=== PATIENT | male | born 1945 | race Caucasian/White ===

== ENCOUNTER → 2017-04-15 | Outpatient (CLI) | payer MEDICARE, MEDICAID | LOC: CARD 10:19 | PROVIDERS: ATTEND Internal Medicine Cardiovascular Disease | DX: I25.10 Atherosclerotic heart disease of native coronary artery without angina pectoris (principal); I25.5 Ischemic cardiomyopathy; E78.4 Other hyperlipidemia; I10 Essential (primary) hypertension; R09.89 Other specified symptoms and signs involving the circulatory and respiratory systems; J43.8 Other emphysema; Z72.0 Tobacco use | CPT/HCPCS: 93306 ==

== ENCOUNTER → 2018-08-13 | Outpatient (CLI) | payer MEDICARE, MEDICAID ==
[~2018-08-13] MED LIST: ASPI-999 PO; CEPH-507 PO; FINA5TAB6 PO; HYDR-3870 PO; LISI-556 PO; METF-399 PO; SIMV20TA3 PO; TAMS0.4C2 PO
== END | disposition home or self-care (01) ==
LOC: PREOP 05:30
PROVIDERS: ATTEND Urology
DX: Z01.818 Encounter for other preprocedural examination (principal)

== ENCOUNTER 2018-08-17 06:12 | Day surgery (SDC) | payer MEDICARE, MEDICAID ==
[~2018-08-17] VITALS: Ht 188 cm; Wt 86.0 kg
[2018-08-17 06:20] VITALS: BP 117/70
[2018-08-17] MEDS ORDERED: LIDOCAINE PF 2% 5 ML (XYLOCAINE) VIAL ONE ×2 (06:30→06:57)
[2018-08-17] MEDS: LACTATED RINGERS 1,000 ML IV PRN ×2 (06:49→09:14)
[2018-08-17] MEDS ORDERED: proPOfol 200 MG/20 ML (DIPRIVAN) VIAL IV ONE (06:57)
[2018-08-17] MEDS ORDERED: MIDAZOLAM 2 MG/2 ML (VERSED) VIAL ONE (06:57)
[2018-08-17] MEDS ORDERED: ONDANSETRON 4 MG/2 ML (SDV) Z0FRAN ONE (06:57)
[2018-08-17] MEDS ORDERED: fentaNYL INJECTION 100 MCG/2 ML AMP ONE (06:57)
[2018-08-17] MEDS ORDERED: LACTATED RINGERS 1,000 ML IV ONE (06:57)
[2018-08-17] MEDS ORDERED: GENTAMICIN 40 MG/ML 2 ML INJ SDV ONE (06:59)
[2018-08-17] MEDS ORDERED: LIDOCAINE 1% INJ 20 ML 20 ML VIAL ONE (06:59)
[2018-08-17] MEDS ORDERED: SEVOFLURANE (ULTANE) 15 ML INHAL SOLN ONE ×3 (07:03→07:43)
--- NOTE | 2018-08-17 07:09 | Progress Note-Pre Operative ---
Pre-Operative Progress Note H&P Reviewed The H&P was reviewed, patient examined and no changes noted. Date Seen by Provider: Aug 17, 2018 Time Seen by Provider: 07:08 Date H&P Reviewed: Aug 17, 2018 Time H&P Reviewed: 07:08 Pre-Operative Diagnosis: NEUROGENIC BLADDER WITH URINE RETENTION JOSE HUERTA MD Aug 17, 2018 7:08 am
[2018-08-17] MEDS ORDERED: TAMS0.4C2 PO (07:14)
[2018-08-17] MEDS ORDERED: LISI-556 PO (07:14)
[2018-08-17] MEDS ORDERED: FINA5TAB6 PO (07:14)
[2018-08-17] MEDS ORDERED: SIMV20TA3 PO (07:14)
[2018-08-17] MEDS ORDERED: ASPI-999 PO (07:14)
[2018-08-17] MEDS ORDERED: METF-399 PO (07:14)
--- OUTSIDE RECORDS SUMMARY | 2018-08-17 07:19 | XMS REPORT | Continuity of Care Document ---
Author Author [facility] Organization [facility] Address Unknown Phone Unavailable Allergies Active Description Code Type Severity Reaction Onset Reported/Identified Relationship to Patient Clinical Status Yes NO KNOWN DRUG ALLERGIES NO KNOWN DRUG ALLERG UNKNOWN Yes NO KNOWN DRUG ALLERGIES UNKNOWN NO KNOWN DRUG ALLERG Yes No Known Allergies [id number] Drug Allergy Unknown N/A 12/29/2013 Medications Medication Packaging Start Date Stop Date Route Dosage Sig URO-JET (LIDOCAINE) INJ 2 % (UROJECT) APPLICATION 05/19/2018 05/19/2018 ONCE&0940 URO-JET (LIDOCAINE) INJ 2 % (UROJECT) APPLICATION 07/22/2018 07/22/2018 ONCE&2220 Problems Date Dx Coded Attending Type Code Diagnosis Diagnosed By 02/26/2015 JEAN CARLOS SÁNCHEZ FACC, BERTHA FACP CCDS Ot 272.4 02/26/2015 JEAN CARLOS SÁNCHEZ FACC, BERTHA FACP CCDS Ot 397.0 02/26/2015 JEAN CARLOS SÁNCHEZ FACC, BERTHA FACP CCDS Ot 401.9 02/26/2015 JEAN CARLOS SÁNCHEZ FACC, BERTHA FACP CCDS Ot 424.0 02/26/2015 JEAN CARLOS SÁNCHEZ FACC, BERTHA FACP CCDS Ot 427.69 02/26/2015 JEAN CARLOS SÁNCHEZ FACC, BERTHA FACP CCDS Ot 427.89 02/26/2015 JEAN CARLOS SÁNCHEZ FACC, BERTHA FACP CCDS Ot 786.09 02/26/2015 JEAN CARLOS SÁNCHEZ FACC, BERTHA FACP CCDS Ot 250.00 02/26/2015 JEAN CARLOS SÁNCHEZ FACC, BERTHA FACP CCDS Ot 272.4 02/26/2015 JEAN CARLOS SÁNCHEZ FACC, ALI FACP CCDS Ot 305.1 02/26/2015 JEAN CARLOS SÁNCHEZ FACC, BERTHA FACP CCDS Ot 401.9 02/26/2015 JEAN CARLOS SÁNCHEZ FACC, BERTHA FACP CCDS Ot 427.69 02/26/2015 JEAN CARLOS SÁNCHEZ FACC, BERTHA FACP CCDS Ot 427.89 02/26/2015 BERTHA EVANGELISTA MD, FACC FACP CCDS Ot 786.09 02/26/2015 JEAN CARLOS SÁNCHEZ FACC, ALI FACP CCDS Ot 427.69 02/26/2015 JEAN CARLOS SÁNCHEZ FACC, ALI FACP CCDS Ot 427.89 02/26/2015 JEAN CARLOS SÁNCHEZ FACC, ALI FACP CCDS Ot 786.09 03/19/2015 BAIMA, KATIE L GOLF CART ATTENDANT Ot 272.4 03/19/2015 BAIMA, KATIE L GOLF CART ATTENDANT Ot 305.1 03/19/2015 BAIMA, KATIE L GOLF CART ATTENDANT Ot 401.9 03/19/2015 BAIMA, KATIE L GOLF CART ATTENDANT Ot 414.00 03/19/2015 BAIMA, KATIE L GOLF CART ATTENDANT Ot 414.8 03/19/2015 BAIMA, KATIE L GOLF CART ATTENDANT Ot 427.69 03/19/2015 BAIMA, KATIE L GOLF CART ATTENDANT Ot 496 04/03/2015 BAIMA, KATIE L GOLF CART ATTENDANT Ot 272.4 04/03/2015 BAIMA, KATIE L GOLF CART ATTENDANT Ot 305.1 04/03/2015 BAIMA, KATIE L GOLF CART ATTENDANT Ot 401.9 04/03/2015 BAIMA, KATIE L GOLF CART ATTENDANT Ot 414.00 04/03/2015 BAIMA, KATIE L GOLF CART ATTENDANT Ot 414.8 04/03/2015 BAIMA, KATIE L GOLF CART ATTENDANT Ot 427.69 04/03/2015 BAIMA, KATIE L GOLF CART ATTENDANT Ot 496 05/15/2017 JEAN CARLOS SÁNCHEZ FACC, BERTHA DILLARDP CCDS Ot E78.4 OTHER HYPERLIPIDEMIA 05/15/2017 JEAN CARLOS SÁNCHEZ FACC, BERTHA FACP CCDS Ot I10 ESSENTIAL (PRIMARY) HYPERTENSION 05/15/2017 JEAN CARLOS SÁNCHEZ FACC, BERTHA FACP CCDS Ot I25.10 ATHSCL HEART DISEASE OF [place] CORONARY 05/15/2017 JEAN CARLOS SÁNCHEZ FACC, BERTHA FACP CCDS Ot I25.5 ISCHEMIC CARDIOMYOPATHY 05/15/2017 JEAN CARLOS SÁNCHEZ FACC, BERTHA FACP CCDS Ot J43.8 OTHER EMPHYSEMA 05/15/2017 JEAN CARLOS SÁNCHEZ FACC, BERTHA FACP CCDS Ot R09.89 OTH SYMPTOMS AND SIGNS INVOLVING THE CIR 05/15/2017 BERTHA EVANGELISTA MD, FACC FACP CCDS Ot Z72.0 TOBACCO USE 05/18/2017 JEAN CARLOS SÁNCHEZ FACC, BERTHA FACP CCDS Ot E78.4 OTHER HYPERLIPIDEMIA 05/18/2017 JEAN CARLOS SÁNCHEZ FACC, ALI FACP CCDS Ot I10 ESSENTIAL (PRIMARY) HYPERTENSION 05/18/2017 JEAN CARLOS SÁNCHEZ FACC, ALI FACP CCDS Ot I25.10 ATHSCL HEART DISEASE OF [place] CORONARY 05/18/2017 JEAN CARLOS SÁNCHEZ FACC, ALI FACP CCDS Ot I25.5 ISCHEMIC CARDIOMYOPATHY 05/18/2017 JEAN CARLOS SÁNCHEZ FACC, ALI FACP CCDS Ot J43.8 OTHER EMPHYSEMA 05/18/2017 JEAN CARLOS SÁNCHEZ FACC, ALI FACP CCDS Ot R09.89 OTH SYMPTOMS AND SIGNS INVOLVING THE CIR 05/18/2017 JEAN CARLOS SÁNCHEZ FACC, ALI FACP CCDS Ot Z72.0 TOBACCO USE 09/28/2017 Paul Suero 401.9 UNSPECIFIED ESSENTIAL HYPERTENSION 09/28/2017 Paul Suero I10 ESSENTIAL (PRIMARY) HYPERTENSION 09/28/2017 Paul Suero 272.4 OTHER AND UNSPECIFIED HYPERLIPIDEMIA 09/28/2017 Paul Suero 401.9 UNSPECIFIED ESSENTIAL HYPERTENSION 09/28/2017 Paul Suero E78.5 HYPERLIPIDEMIA, UNSPECIFIED 09/28/2017 Paul Suero I10 ESSENTIAL (PRIMARY) HYPERTENSION 09/28/2017 Paul Suero 272.4 OTHER AND UNSPECIFIED HYPERLIPIDEMIA 09/28/2017 Paul Suero 401.9 UNSPECIFIED ESSENTIAL HYPERTENSION 09/28/2017 Paul Suero E78.5 HYPERLIPIDEMIA, UNSPECIFIED 09/28/2017 Paul Suero I10 ESSENTIAL (PRIMARY) HYPERTENSION 12/28/2017 Paul Suero 250.00 DIABETES MELLITUS WITHOUT MENTION OF COMPLICATION, TYPE II OR UNSPECIFIED TYPE, NOT STATED UNCONTROLLED 12/28/2017 Paul Suero E11.9 TYPE 2 DIABETES MELLITUS WITHOUT COMPLICATIONS 12/28/2017 Paul Suero 250.00 DIABETES MELLITUS WITHOUT MENTION OF COMPLICATION, TYPE II OR UNSPECIFIED TYPE, NOT STATED UNCONTROLLED 12/28/2017 Paul Suero E11.9 TYPE 2 DIABETES MELLITUS WITHOUT COMPLICATIONS 05/19/2018 Paul Suero 788.20 RETENTION OF URINE, UNSPECIFIED 05/19/2018 Paul Suero 790.93 ELEVATED PROSTATE SPECIFIC ANTIGEN [PSA] 05/19/2018 Paul Suero R33.9 RETENTION OF URINE, UNSPECIFIED 05/19/2018 Paul Suero R97.20 ELEVATED PROSTATE SPECIFIC ANTIGEN [PSA] 05/19/2018 Paul Suero V76.44 SCREENING FOR MALIGNANT NEOPLASMS OF PROSTATE 05/19/2018 Paul Sureo Z12.5 ENCOUNTER FOR SCREENING FOR MALIGNANT NEOPLASM OF PROSTATE 05/21/2018 Drake More W 996.31 MECHANICAL COMPLICATION DUE TO URETHRAL [INDWELLING] CATHETER 05/21/2018 Drake More W T83.03 LEAKAGE OF URINARY (INDWELLING) CATHETER 05/21/2018 Drake More A 996.31 MECHANICAL COMPLICATION DUE TO URETHRAL [INDWELLING] CATHETER 05/21/2018 Drake More A T83.031A LEAKAGE OF INDWELLING URETHRAL CATHETER, INITIAL ENCOUNTER 05/29/2018 Kelvin Chowdary 599.0 URINARY TRACT INFECTION, SITE NOT SPECIFIED 05/29/2018 Kelvin Chowdary 788.20 RETENTION OF URINE, UNSPECIFIED 05/29/2018 Kelvin Chowdary N39.0 URINARY TRACT INFECTION, SITE NOT SPECIFIED 05/29/2018 Kelvin Chowdary R33.9 RETENTION OF URINE, UNSPECIFIED 07/22/2018 ROBERT PATEL 788.20 RETENTION OF URINE, UNSPECIFIED 07/22/2018 ROBERT PATEL R33.9 RETENTION OF URINE, UNSPECIFIED 08/11/2018 JEAN CARLOS SÁNCHEZ FACC, ALI FACP CCDS Ot 272.4 HYPERLIPIDEMIA NEC/NOS 08/11/2018 JEAN CARLOS SÁNCHEZ FACC, ALI FACP CCDS Ot 397.0 TRICUSPID VALVE DISEASE 08/11/2018 JEAN CARLOS SÁNCHEZ FACC, ALI FACP CCDS Ot 401.9 HYPERTENSION NOS 08/11/2018 JEAN CARLOS SÁNCHEZ FACC, ALI FACP CCDS Ot 424.0 MITRAL VALVE DISORDER 08/11/2018 JEAN CARLOS SÁNCHEZ FACC, ALI FACP CCDS Ot 427.69 PREMATURE BEATS NEC 08/11/2018 JEAN CARLOS SÁNCHEZ FACC, ALI FACP CCDS Ot 427.89 CARDIAC DYSRHYTHMIAS NEC 08/11/2018 JEAN CARLOS SÁNCHEZ FACC, ALI FACP CCDS Ot 786.09 RESPIRATORY ABNORM NEC 08/11/2018 JEAN CARLOS SÁNCHEZ FACC, ALI FACP CCDS Ot 250.00 DIAB DIOGO WO COMPL, TYPE II OR UNSPEC TY 08/11/2018 JEAN CARLOS SÁNCHEZ FACC, ALI FACP CCDS Ot 272.4 HYPERLIPIDEMIA NEC/NOS 08/11/2018 JEAN CARLOS SÁNCHEZ FACC, ALI FACP CCDS Ot 305.1 TOBACCO USE DISORDER 08/11/2018 JEAN CARLOS SÁNCHEZ FACC, ALI FACP CCDS Ot 401.9 HYPERTENSION NOS 08/11/2018 JEAN CARLOS SÁNCHEZ FACC, ALI FACP CCDS Ot 427.69 PREMATURE BEATS NEC 08/11/2018 JEAN CARLOS SÁNCHEZ FACC, ALI FACP CCDS Ot 427.89 CARDIAC DYSRHYTHMIAS NEC 08/11/2018 JEAN CARLOS SÁNCHEZ FACC, ALI FACP CCDS Ot 786.09 RESPIRATORY ABNORM NEC 08/11/2018 JEAN CARLOS SÁNCHEZ FACC, ALI FACP CCDS Ot 427.69 PREMATURE BEATS NEC 08/11/2018 JEAN CARLOS SÁNCHEZ FACC, ALI FACP CCDS Ot 427.89 CARDIAC DYSRHYTHMIAS NEC 08/11/2018 JEAN CARLOS SÁNCHEZ FACC, ALI FACP CCDS Ot 786.09 RESPIRATORY ABNORM NEC 08/11/2018 BAIMA, KATIE L GOLF CART ATTENDANT Ot 272.4 HYPERLIPIDEMIA NEC/NOS 08/11/2018 BAIMA KATIE L GOLF CART ATTENDANT Ot 305.1 TOBACCO USE DISORDER 08/11/2018 BAIMA, KATIE L GOLF CART ATTENDANT Ot 401.9 HYPERTENSION NOS 08/11/2018 BAIMA, KATIE L GOLF CART ATTENDANT Ot 414.00 CORON ATHEROSCLER NOS TYPE VESSEL, NATIV 08/11/2018 ADRIANAMA KATIE L GOLF CART ATTENDANT Ot 414.8 CHR ISCHEMIC HRT DIS NEC 08/11/2018 ADRIANAMA, KATIE L GOLF CART ATTENDANT Ot 427.69 PREMATURE BEATS NEC 08/11/2018 ADRIANAMA KATIE L GOLF CART ATTENDANT Ot 496 CHR AIRWAY OBSTRUCT NEC 08/11/2018 JEAN CARLOS SÁNCHEZ FACC, ALI FACP CCDS Ot E78.4 OTHER HYPERLIPIDEMIA 08/11/2018 JEAN CARLOS SÁNCHEZ FACC, ALI FACP CCDS Ot I10 ESSENTIAL (PRIMARY) HYPERTENSION 08/11/2018 JEAN CARLOS SÁNCHEZ FACC, ALI FACP CCDS Ot I25.10 ATHSCL HEART DISEASE OF [place] CORONARY 08/11/2018 JEAN CARLOS SÁNCHEZ FACC, ALI FACP CCDS Ot I25.5 ISCHEMIC CARDIOMYOPATHY 08/11/2018 JEAN CARLOS SÁNCHEZ FACC, ALI FACP CCDS Ot J43.8 OTHER EMPHYSEMA 08/11/2018 JEAN CARLOS SÁNCHEZ FACC, ALI FACP CCDS Ot R09.89 OTH SYMPTOMS AND SIGNS INVOLVING THE CIR 08/11/2018 JEAN CARLOS SÁNCHEZ FACC, ALI FACP CCDS Ot Z72.0 TOBACCO USE Procedures There is no data. Results Test Result Range Hemoglobin A1C - 12/08/16 08:38 % A1C 5.60 % 5.40-6.60 AvGlu 124 mg/dL 70-110 Lipid Panel - 03/10/17 09:00 C/HDL 2.9 3.7-6.7 Cholesterol 144 mg/dL 100-240 HDL 50 mg/dL 30-85 LDL-Calculated 74 mg/dL 0-100 Trig 99 mg/dL 35-160 VLDL 20 mg/dL 0-42 Hemoglobin A1C - 06/10/17 08:53 % A1C 5.90 % 5.40-6.60 AvGlu 134 mg/dL 70-110 [facility] - 09/28/17 09:52 Anion Gap 18 6-14 BUN 10 mg/dL 5-25 Calcium 9.6 mg/dL 8.3-10.4 Chloride 102 mmol/L 95-114 CO2 21 mEq/L 22-33 Creat 0.88 mg/dL 0.50-1.50 eGFR 84 mL/min/1.73m2 >59 Glucose 119 mg/dL 70-110 Osmo 281 280-295 Potassium 5.4 Hemolyzed 1+ mmol/L 3.5-5.3 Sodium 136 mmol/L 134-148 Hemoglobin A1C - 12/28/17 09:27 % A1C 5.50 % 5.40-6.60 AvGlu 117 mg/dL 70-110 BMP - 03/29/18 09:05 Anion Gap 18 6-14 BUN 14 mg/dL 5-25 Calcium 9.1 mg/dL 8.3-10.4 Chloride 109 mmol/L 95-114 CO2 21 mEq/L 22-33 Creat 1.12 mg/dL 0.50-1.50 eGFR 64 mL/min/1.73m2 >59 Glucose 103 mg/dL 70-110 Osmo 298 280-295 Potassium 3.6 mmol/L 3.5-5.3 Sodium 144 mmol/L 134-148 Urine Culture - 05/19/18 10:57 PRELIM CULTURE RESULTS No Growth 24 hours FINAL CULTURE RESULTS No Growth 48 hours MEDIA PLATED Setup at 11:05 on 05/19/2018 CULTURE SOURCE void [facility] - 05/20/18 07:27 Anion Gap 16 6-14 BUN 24 mg/dL 5-25 Calcium 9.2 mg/dL 8.3-10.4 Chloride 106 mmol/L 95-114 CO2 23 mEq/L 22-33 Creat 1.61 mg/dL 0.50-1.50 eGFR 42 mL/min/1.73m2 >59 Glucose 163 mg/dL 70-110 Osmo 300 280-295 Potassium 3.4 mmol/L 3.5-5.3 Sodium 142 mmol/L 134-148 Urinalysis - 05/21/18 03:18 Icotest Negative Negative Urine Volume Urine Volume Sufficient (10mL) Urine Yeast No Yeast present Urine-Appearance Slightly Cloudy Clear Urine-Bacteria Trace Urine-Bilirubin 1+ Negative Urine-Blood 3+ Negative Urine-Color Red Colorless-Lt. Yellow Urine-Epithelial Cells 0-5/HPF Urine-Glucose Negative Negative Urine-Ketones Negative Negative Urine-Leukocytes Negative Negative Urine-Nitrite Positive Negative Urine-Other Culture to follow Urine-pH 7.0 5-8.5 Urine-Protein 3+ Negative Urine-RBC TNTC Urine-Specific [place] 1.020 1.000-1.030 Urine-WBC 0-2/HPF Urobilinogen 0.2 0.2-1.0 Urine Culture - 05/21/18 03:34 PRELIM CULTURE RESULTS [id number],000 Col/ml Mixed Gram Positive organisms.[id number] Normal gali and/or skin contaminant. FINAL CULTURE RESULTS [id number] further work up done. MEDIA PLATED Setup at 03:44 on 05/21/2018 CULTURE SOURCE void Urine Culture - 05/29/18 12:16 PRELIM CULTURE RESULTS No Growth 24 hours FINAL CULTURE RESULTS <10,000 Gram Positive Mixed Gali [id number] Skin Contaminant [id number] Further Workup done CULTURE SOURCE urine culture Urinalysis - 05/29/18 12:16 Icotest N/A Negative Urine Volume Urine Volume Sufficient (10mL) Urine Yeast No Yeast present Urine-Appearance Clear Clear Urine-Bacteria 2+ Urine-Bilirubin Negative Negative Urine-Blood 1+ Negative Urine-Color Yellow Colorless-Lt. Yellow Urine-Glucose Negative Negative Urine-Ketones Negative Negative Urine-Leukocytes 1+ Negative Urine-Mucus 1+ Urine-Nitrite Negative Negative Urine-Other Culture to follow Urine-pH 7.5 5-8.5 Urine-Protein 3+ Negative Urine-RBC 5-10/HPF Urine-Specific [place] 1.020 1.000-1.030 Urine-WBC 20-40/HPF Urobilinogen 0.2 E.U./dL 0.2-1.0 Comprehensive Metabolic Panel - 06/28/18 09:33 Albumin 4.4 g/dL 3.6-5.1 ALP 59 U/L 35-130 ALT 13 U/L 6-45 Anion Gap 15 6-14 AST 15 U/L 2-40 BUN 22 mg/dL 5-25 Calcium 9.7 mg/dL 8.3-10.4 Chloride 104 mmol/L 95-114 CO2 23 mEq/L 22-33 Creat 1.18 mg/dL 0.50-1.50 eGFR 60 mL/min/1.73m2 >59 Globulin 3.7 g/dL 2.3-3.5 Glucose 114 mg/dL 70-110 Osmo 287 280-295 Potassium 4.6 mmol/L 3.5-5.3 Sodium 137 mmol/L 134-148 TBil 0.4 mg/dL 0.2-1.2 TP 8.1 g/dL 6.0-8.3 Urinalysis - 07/22/18 22:32 Icotest N/A Negative Urine Volume Urine Volume Sufficient (10mL) Urine-Appearance Clear Clear Urine-Bacteria Negative Urine-Bilirubin Negative Negative Urine-Blood Negative Negative Urine-Color Lt. Yellow Colorless-Lt. Yellow Urine-Epithelial Cells 0-5/HPF Urine-Glucose Negative Negative Urine-Ketones Negative Negative Urine-Leukocytes Negative Negative Urine-Nitrite Negative Negative Urine-Other Culture to follow; cath specimen Urine-pH 5.5 5-8.5 Urine-Protein Negative Negative Urine-RBC 0-3/HPF Urine-Specific [place] 1.010 1.000-1.030 Urine-WBC 8-15/HPF Urobilinogen 0.2 0.2-1.0 Urine Culture - 07/22/18 22:32 PRELIM CULTURE RESULTS No Growth 24 hours FINAL CULTURE RESULTS No Growth 48 hours MEDIA PLATED Setup at 22:45 on 07/22/2018 CULTURE SOURCE cath urine specimen Encounters ACCT No. Visit Date/Time Discharge Status Pt. Type Provider Facility Loc./Unit Complaint [id number] 04/15/2017 10:19:00 04/15/2017 23:59:59 CLS Outpatient JEAN CARLOS SÁNCHEZ FACC, ALI FACP CCDS [facility] CARD I25.10,I25.5, J43.8 [id number] 02/26/2015 13:24:00 02/26/2015 23:59:59 CLS Outpatient KATIE OLIVEIRA [facility] CARD FREQUENT PVC,CAD, ISCHEMIC CARDIOMYOPATHY [id number] 12/29/2013 07:40:00 12/29/2013 23:59:59 CLS Outpatient JEAN CARLOS SÁNCHEZ FACKamar, ALI FACP CCDS [facility] RAD PVC,DYSPNEA, HTN,HLP [id number] 12/23/2013 13:49:00 12/23/2013 23:59:59 CLS Outpatient JEAN CARLOS SÁNCHEZ FACKamar, ALI FACP CCDS [facility] CARD PVC,DYSPNEA, HTN,HLP [id number] 11/22/2013 08:55:00 11/22/2013 23:59:59 CLS Outpatient JEAN CARLOS SÁNCHEZ FACC, BERTHA FACP CCDS [facility] CARD PVC,DYSPNEA, BRADYCARDIA [id number] 08/17/2018 08:00:00 PEN JOSE Stephens MD [facility] URINE RETENTION [id number] 05/29/2018 10:50:00 Document Registration [id number] 07/22/2018 21:45:00 07/22/2018 22:35:00 [id number] 06/28/2018 09:31:00 06/28/2018 23:59:00 DIS Outpatient Paul Suero [id number] 05/29/2018 10:50:00 05/29/2018 12:30:00 DIS Outpatient [facility] ER [id number] 05/21/2018 02:50:00 05/21/2018 03:53:00 DIS Outpatient [facility] ER [id number] 05/20/2018 07:17:00 05/20/2018 23:59:00 DIS Outpatient Paul Suero [id number] 05/19/2018 09:25:00 05/19/2018 10:55:00 DIS Outpatient Paul Suero [id number] 03/29/2018 09:01:00 03/29/2018 23:59:00 DIS Outpatient Paul Suero [id number] 12/28/2017 09:24:00 12/28/2017 23:59:00 DIS Outpatient Paul Suero [id number] 09/28/2017 09:39:00 09/28/2017 23:59:00 DIS Outpatient Paul Suero [id number] 06/10/2017 08:48:00 06/10/2017 23:59:00 DIS Outpatient Paul Suero [id number] 03/10/2017 08:58:00 03/10/2017 23:59:00 DIS Outpatient Paul Suero [id number] 12/08/2016 08:35:00 12/08/2016 23:59:00 DIS Outpatient Paul Suero [id number] 05/19/2018 09:59:01 Document Registration
[2018-08-17] MEDS ORDERED: NS (IVPB) 50 ML ONE (07:26)
[2018-08-17] MEDS ORDERED: cefTRIAXone 1 GM/10 ML for IV (ROCEPHIN) ONE (07:26)
[2018-08-17] MEDS ORDERED: cefTRIAXone FOR IV USE 1,000 MG in NS (IVPB) 50 ML IV ONE (07:30)
[2018-08-17] MEDS ORDERED: CATHETER FLUSH 10 ML SYR IV PRN (07:45)
--- NOTE | 2018-08-17 07:49 | Progress Note-Post Operative ---
Post-Operative Progess Note Surgeon (s)/Laser/Electro Optics Technician (s) Surgeon JOSE HUERTA MD Laser/Electro Optics Technician: KEISHA Pre-Operative Diagnosis NEUROGENIC BLADDER WITH URINE RETENTION Post-Operative Diagnosis SAME Procedure & Operative Findings Date of Procedure 08/17/18 Procedure Performed/Findings SUPRAPUBIC CYSTOSTOMY TUBE PLACEMENT Anesthesia Type GENERAL Estimated Blood Loss Estimated blood loss (mL): NEGLIGIBLE Specimens/Packing Specimens Removed NONE Packing: NONE JOSE HUERTA MD Aug 17, 2018 7:48 am
--- NOTE | 2018-08-17 08:19 | Discharge Inst-Urology ---
Discharge Inst-Urology Discharge Medications New, Converted, or Re-newed RX: RX on Chart Patient Instructions/Follow Up Plan Please make appointment to been seen in office in 3 weeks. Rest till then Stay off Tamsulosin and Finasteride Patient to come to office in 10 days to DC gianluca and suture around catheter May resume ASA in 2 weeks if no bleeding Increase oral fluids for 48 hours and then as needed. Diet as tolerated. If questions or concerns contact your physician Or seek help at emergency department. JOSE HUERTA MD Aug 17, 2018 8:19 am
[2018-08-17] MEDS ORDERED: morphine INJ 10 MG/ML 1ML (SYR OR VIAL) ONE (08:28)
[2018-08-17] MEDS ORDERED: ONDANSETRON 4 MG/2 ML (SDV) Z0FRAN IVP PRN (08:30)
[2018-08-17] MEDS ORDERED: morphine INJ 10 MG/ML 1ML (SYR OR VIAL) IVP ONE (08:30)
[2018-08-17] MEDS ORDERED: MEPERIDINE (DEMEROL) INJ 50 MG/ML IVP ONE (08:30)
[2018-08-17] MEDS ORDERED: MEPERIDINE (DEMEROL) INJ 50 MG/ML ONE (08:43)
[2018-08-17] MEDS ORDERED: CEPH-507 PO (08:53)
[2018-08-17] MEDS ORDERED: HYDR-3870 PO (08:53)
[2018-08-17 09:20] VITALS: BP 123/61
[2018-08-17 09:50] VITALS: BP 134/59
[2018-08-17 10:20] VITALS: BP 135/65
--- NOTE | 2018-08-17 12:55 | OPERATIVE REPORT ---
DATE OF SERVICE: 08/17/2018 PREOPERATIVE DIAGNOSIS: Neurogenic bladder with urinary retention. POSTOPERATIVE DIAGNOSIS: Neurogenic bladder with urinary retention. OPERATION PERFORMED: Suprapubic tube cystostomy placement. SURGEON: Jung Huerta MD SILVER SOLUTION MIXER: Reed Parker DO ANESTHESIA: General. COMPLICATIONS: None. DESCRIPTION OF PROCEDURE: Under satisfactory general anesthesia, the patient in supine position, the abdomen, genitalia and thighs were prepped and draped in the usual sterile fashion. After filling the bladder with 400 mL of antibiotic solution through the Bah catheter and clamp it, a midline incision from symphysis pubis towards the umbilicus for a couple of 3 cm was performed and carried through the skin, subcutaneous tissue and fascia. The midline was identified. A self-retaining retractor was placed. The bladder was identified and confirmed by draining fluid with the syringe and needle. A cystostomy stab wound was performed and a 22-Kiswahili 2-way 5 mL balloon catheter was inserted in the bladder, which was drained and the balloon was inflated to 10 mL and held snugly against the anterior bladder wall. There was no need to put any suture around the suprapubic tube. Closure was performed of the layer first. The fascia was interrupted with 2-0 Vicryl and then the subcutaneous tissue with interrupted 3-0 plain and the skin with gianluca. The catheter was secured in position with an 0 silk suture. Dressing was applied. Needle, sponge and instruments were correct x2. Estimated blood loss was negligible. The patient tolerated the procedure and anesthesia well and was sent to recovery room in stable condition. Job ID: [id number] DocumentID: [id number] Dictated Date: 08/17/2018 08:22:21 Dish Up Person Date: 08/17/2018 12:54:32 Dictated By: JUNG HUERTA MD
== END 2018-08-17 10:40 | disposition home or self-care (01) ==
LOC: SDC 06:12
PROVIDERS: ATTEND Urology
DX: N31.9 Neuromuscular dysfunction of bladder, unspecified (principal); R33.9 Retention of urine, unspecified; I10 Essential (primary) hypertension; E11.9 Type 2 diabetes mellitus without complications; F17.210 Nicotine dependence, cigarettes, uncomplicated; Z79.82 Long term (current) use of aspirin; Z79.84 Long term (current) use of oral hypoglycemic drugs; Z79.899 Other long term (current) drug therapy
CPT/HCPCS: 82962; 87081